=== PATIENT | male | born 1950 | race Caucasian/White ===

== ENCOUNTER 2021-10-13 11:28 | Emergency (ER) | payer OTHER ==
[~2021-10-13] VITALS: Ht 175.3 cm; Wt 108.9 kg
[2021-10-13 12:45] LABS: URINE BLOOD NEGATIVE (Negative); URINE CLARITY CLOUDY; URINE COLOR YELLOW; URINE GLUCOSE-RANDOM* NEGATIVE (Negative); URINE KETONES NEGATIVE (Negative); URINE PROTEIN (DIPSTICK) 2+ (Negative); URINE SPECIFIC GRAVITY <= 1.005 (1.005-1.035)
[2021-10-13 12:50] LABS: ICTOTEST (BILI CONFIRMATORY) Negative (Negative); URINE BILIRUBIN NEGATIVE (Negative); URINE LEUKOCYTES-REFLEX 3+ (Negative); URINE NITRITE-REFLEX POSITIVE (Negative)
[2021-10-13 13:09] LABS: BACTERIA-REFLEX >30 Many /HPF (None Seen); CASTS None Seen /LPF (None Seen); MUCUS None Seen strn/LPF (None Seen); SQUAMOUS None Seen /LPF (0-3); TRIPLE PHOSPHATE CRYSTALS 0-3 Few /LPF (None Seen); URINE RBC None Seen /HPF (NONE SEEN); URINE WBC-REFLEX 6-15 Few /HPF (0-5)
[2021-10-13 15:58] LABS: BASOPHILS 1.2 % (0.0-2.0); EOSINOPHILS 0.4 % (0.0-3.0); HEMATOCRIT 39.7 % (42.0-52.0); HEMOGLOBIN 12.7 gm/dL (14.0-18.0); LYMPHOCYTES 13.9 % (24.0-44.0); MCH 29.2 pg (26.0-34.0); MCV 91.4 fL (80.0-100.0); MONOCYTES 6.8 % (1.0-8.0); PLATELET COUNT 116 thou/uL (150-400); POLYS 77.7 % (36.0-66.0); RBC 4.35 mil/uL (4.50-6.00); RDW 18.9 % (10.5-14.5)
[2021-10-13 16:14] LABS: CALCIUM 8.4 mg/dL (8.5-10.1); CREATININE 1.5 mg/dL (0.7-1.3); POTASSIUM 3.4 mmol/L (3.5-5.1)
[2021-10-13 16:23] LABS: ALBUMIN 2.6 g/dL (3.4-5.0); MAGNESIUM 1.4 mg/dL (1.8-2.4); TOTAL BILIRUBIN 1.3 mg/dL (0.2-1.0)
[2021-10-13] MEDS ORDERED: CEFDINIR S250 MG/5 M PO (22:15)
[2021-10-13 22:30] VITALS: BP 126/79
--- NOTE | 2021-10-14 08:15 | EKG ---
[place] [address] [address] [facility] [employer] [place] [address] ELECTROCARDIOGRAM REPORT Name: ZOHRA KHAN Room #: DEP [facility]okul[facility]okul[facility] [id number] Admission: 10/13/21 Attend Phys: Discharge: 10/13/21 Date of : 54 Report #: [id number] [facility] ED Test Date: 2021-10-13 Test Time: 16:14:42 Pat Name: ZOHRA KHAN Department: Room: Gender: Decision Support Manager: [facility] 1950 Requested By: Josef Corea Order Number: [id number] MD: Josue Oreilly Measurements Intervals [place] Rate: 66 P: 61 [place]: 175 QRS: 67 QRSD: 113 T: -52 QT: 501 QTc: 525 Interpretive Statements Sinus rhythm Frequent premature ventricular complexes Nonspecific T wave abnormality Prolonged QT interval No previous ECG available for comparison Electronically Signed On 10-14-2021 8:15:25 MANAGER MATERIAL by Josue Oreilly [email or web address] <ELECTRONICALLY SIGNED> By: Josue Oreilly MD, [facility] 10/14/21 0815 1614 1614 Josue Oreilly MD, FACC /EPI
== END 2021-10-13 22:31 | disposition home or self-care (01) ==
LOC: ER 11:28
PROVIDERS: Emergency Medicine
DX: E87.6 Hypokalemia (principal); E83.42 Hypomagnesemia; R11.2 Nausea with vomiting, unspecified; N39.0 Urinary tract infection, site not specified; I48.91 Unspecified atrial fibrillation; K21.9 Gastro-esophageal reflux disease without esophagitis